=== PATIENT | male | born 1950 | race Caucasian/White ===

== ENCOUNTER → 2022-05-05 01:18 | Outpatient (CLI) | payer MEDICARE, SELFPAY ==
[2022-05-05 11:18] LABS: SARS-CoV-2 RNA PCR Positive
== END ==
PROVIDERS: PCP Nurse Practitioner Family; Visit Provider Nurse Practitioner Family
DX: U07.1 COVID-19 (principal)
CPT/HCPCS: C9803; U0003; U0005

== ENCOUNTER 2024-03-13 09:31 | Outpatient (CLI) | payer MEDICARE, SELFPAY ==
--- NOTE | ~2024-03-13 | XR_ITS ---
XR shoulder RT min 2V Ordering provider: Ricki Wagoner MD History: . PAIN IN RIGHT SHOULDER X1 MONTH, NO INJURY . Comparison: November 18, 2020 FINDINGS: BONES: No acute fracture or dislocation. Sclerotic changes seen in the scapula inferior to the glenoi d cavity. JOINT SPACES: The acromioclavicular joint shows mild osteoarthritic changes. The glenohumeral joint i s normal. SOFT TISSUES: Normal. IMPRESSION: No acute osseous abnormality right shoulder. Sclerotic changes in the scapula inferior to the glenoid cavity unchanged. Mild osteoarthritic changes in the acromioclavicular joint. Reviewed, dictated and finalized at location A.
== END 2024-03-13 09:32 | disposition home or self-care (01) ==
LOC: ANHIMG 09:34
PROVIDERS: PCP Family Medicine; Visit Provider Orthopaedic Surgery
DX: M19.011 Primary osteoarthritis, right shoulder (principal); M75.111 Incomplete rotator cuff tear or rupture of right shoulder, not specified as traumatic
CPT/HCPCS: 73030

== ENCOUNTER → 2024-06-01 11:56 | Outpatient (CLI) | payer MEDICARE, SELFPAY ==
--- NOTE | ~2024-06-01 | XR_ITS ---
Left elbow Technique: AP, oblique, and lateral views were obtained. Clinical History: Bursitis Findings: No acute fracture or dislocation is seen. Osseous alignment is anatomic. Joint spaces are p reserved. There is no displacement of the fat pads, and no evidence of joint effusion. Soft tissue sw elling over lateral present. There is enthesopathic change of the triceps tendon insertion and medial epicondyle humerus. Impression: Olecranon bursitis. Enthesopathic changes, as above. Reviewed, dictated and finalized at location M. Impression: Olecranon bursitis. Enthesopathic changes, as above.
== END ==
PROVIDERS: PCP Family Medicine; Visit Provider Orthopaedic Surgery
DX: M70.22 Olecranon bursitis, left elbow (principal)
CPT/HCPCS: 73080